=== PATIENT | female | born 1960 | race Caucasian/White ===

== ENCOUNTER 2018-07-12 11:43 | Emergency (ER) | payer SELFPAY ==
[~2018-07-12] VITALS: Ht 165.1 cm; Wt 108.9 kg
[2018-07-12] MEDS ORDERED: PREDNISONE 20 MG TAB PO NR (12:15)
[2018-07-12] MEDS ORDERED: KETOROLAC TROMETHAMINE 60 MG/2 ML VIAL IM NR (12:15)
[2018-07-12] MEDS ORDERED: DIAZEPAM 5 MG TAB PO PRN ×2 (12:15→14:00)
[2018-07-12] MEDS ORDERED: KETOROLAC TROMETHAMINE 60 MG/2 ML VIAL IM ONE (14:00)
--- NOTE | 2018-07-12 14:33 | Diagnostic Imaging Report ---
Examination: CT CERVICAL SPINE WITHOUT CONTRAST HISTORY:Fall and severe neck pain. COMPARISON:None. TECHNIQUE: Multidetector helical axial images were obtained without contrast from the foramen magnum to T1. Coronal and sagittal reformatted images were done. Bone and soft tissue windows were evaluated. Dose modulation, iterative reconstruction, and/or weight based adjustment of the mA/kV was utilized to reduce the radiation dose to as low as reasonably achievable. FINDINGS: Alignment:Normal alignment and lordosis. Vertebrae: Normal height and density. No acute fracture, infection or neoplasm. Disc space heights: Normal height. Caliber of spinal canal: Developmentally normal. Posterior fossa and craniocervical junction: Foramen magnum patent. No Chiari 1 malformation. Soft tissues: No abnormality. Degenerative changes: No disc bulge/ herniation or foraminal or canal stenosis. IMPRESSION: No abnormalities. Signed by: Dr. Keli Hogue M.D. on 07/12/2018 2:29 PM
--- NOTE | 2018-07-12 14:40 | Diagnostic Imaging Report ---
Examination: CT Thoracic and Lumbar Spines without Contrast History: Severe back pain after fall. Comparison studies: None Technique: Axial images through the thoracic and lumbar spines. Coronal and sagittal reconstructions obtained from the axial data. Dose modulation, iterative reconstruction, and/or weight based adjustment of the mA/kV was utilized to reduce the radiation dose to as low as reasonably achievable. Intravenous contrast: None Findings: The usual 5 non-rib bearing lumbar vertebral bodies are present. Alignment: Normal lordosis. No scoliosis. Soft tissues: No abnormalities. Paraspinal muscles: Unremarkable. Sacroiliac joints: No degenerative changes. Vertebrae: No fractures, infection or neoplasm. Degenerative changes: Thoracic spine: Mild left bridging osteophytes from T6 through T11. Lumbar spine: L1-L2 through L3-L4: No abnormalities. L4-L5: MIld diffuse disc bulge and mild bilateral facet arthropathy result in mild bilateral neural foraminal narrowing. No canal stenosis. L5-S1: MIld diffuse disc bulge and mild bilateral facet arthropathy result in mild bilateral neural foraminal narrowing. No canal stenosis. IMPRESSION: No acute thoracic or lumbar spine abnormality. Signed by: Dr. Keli Hogue M.D. on 07/12/2018 2:36 PM
== END 2018-07-12 16:33 | disposition home or self-care (01) ==
LOC: ER 11:43
DX: M54.5 Low back pain (principal); M54.6 Pain in thoracic spine; M54.2 Cervicalgia; S33.5XXA Sprain of ligaments of lumbar spine, initial encounter; W01.0XXA Fall on same level from slipping, tripping and stumbling without subsequent striking against object, initial encounter; Y92.008 Other place in unspecified non-institutional (private) residence as the place of occurrence of the external cause
CPT/HCPCS: 72125; 72128; 72131; 99284; J1885

== ENCOUNTER 2020-03-29 13:30 | Emergency (ER) | payer SELFPAY ==
[~2020-03-29] VITALS: Ht 165.1 cm; Wt 101.2 kg
--- OUTSIDE RECORDS SUMMARY | 2020-03-29 13:59 | XMS REPORT | Continuity of Care Document ---
Author Author [facility] t Organization [facility] Address [address] [place] [address] Phone Unavailable Care Team Providers Care Plant Puller Name Role Phone NO, PCP PCP Unavailable Levi DESHPANDE Attphylevi Unavailable Problems This patient has no known problems. Allergies, Adverse Reactions, Alerts Allergy Name Allergy Type Status Severity Reaction(s) Onset Date Inacti ve Date Treating Clinician Comments Source SULFA Allergy to Substance Active Moderate RASH 2018-07-12 00:00:00 [facility] TYLENOL W/CODIENE Propensity to adverse reactions Active Mode rate GASTRIC PROBLEMS 2018-07-12 00:00:00 [facility] SULFA (SULFONAMIDE ANTIBIOTICS) Allergy to substance Active [facility] TYLENOL-CODEINE Allergy to substance Active [facility] Social History Smoking Status Start Date Stop Date Source Never Smoker [facility] ractice Medications Ordered Medication Name Filled Medication Name Start Date Stop Da te Current Medication? Ordering Clinician Indication Dosage Frequency Signature (SIG) Comments Components Source Bromfed DM 2 mg-30 mg-10 mg/5 mL oral sy rup Take 10 mL every 4 hours by oral route. Bromfed DM 2 mg-30 mg-10 mg/5 mL oral sy rup Take 10 mL every 4 hours by oral route. No 10mL Q4H Bromfed DM 2 mg-30 mg-10 mg/5 mL oral syrup Take 10 mL every 4 hours by oral route. [facility] Medrol (Juan Ramon) 4 mg tablets in a dose pack as directed Maggie edrol (Juan Ramon) 4 mg tablets in a dose pack as directed No Medrol (Juan Ramon) 4 mg tablets in a dose pack as directed [facility] Z-Juan Ramon 250 mg tablet TAKE 2 TAB LETS (500 MG) BY ORAL ROUTE ONCE DAILY FOR 1 DAY THEN 1 TABLET (250 MG) BY ORAL ROUTE ONCE DAILY FOR 4 DAYS Zithromax Z-Juan Ramon 250 mg tablet TAKE 2 TABLETS (500 MG) BY ORAL ROUTE ONCE DAILY FOR 1 DAY THEN 1 TABLET (250 MG) BY ORAL ROUTE ONCE DAILY FOR 4 DAYS No Zithromax Z-Juan Ramon 250 mg tablet TAKE 2 TABLETS (500 MG) BY ORAL ROUTE ONCE DAILY FOR 1 DAY THEN 1 TABLET (250 MG) BY ORAL ROUTE ONCE DAILY FOR [address] [facility] Vital Signs Vital Name Observation Time Observation Value Comments Source BP Diastolic 2018-09-11 00:00:00 84 mm[Hg] [facility] Height 2018-09-11 00:00:00 64.6 [in_i] [facility] BMI (Body Mass Index) 2018-09-11 00:00:00 37.2 kg/m2 [facility] BP Systolic 2018-09-11 00:00:00 134 mm[Hg] [facility] Body Weight 2018-09-11 00:00:00 221 [lb_av] [facility] Procedures Procedure Date / Time Performed Performing Clinician [facility] Computed tomography of cervical spine without contrast 07-12 00:00:00 [facility] Computed tomography of thoracic spine without contrast 07-12 00:00:00 [facility] Computed tomography of lumbar spine without contrast 2018-07 00:00:00 [facility] Colonoscopy with Biopsy 1989-08-12 00:00:00 [facility] Caesarean Section 1988-08-12 00:00:[address] [facility] Gastrointestinal Surgery 1988-08-12 00:00:00 [place] Plan of Care Planned Activity Planned Date Details Comments Source Diagnostic Test Pending 2018-09-11 00:00:00 rapid flu (A+B) [code = rapid flu (A+B)] [facility] Instructions [facility] Encounters Start Date/Time End Date/Time Encounter Type Admission Type Att[facility] Care Department Encounter ID Source 2018-09-11 00:00:00 2018-09-11 00:00:00 Thad Santiago MD: [id number] [place] [address], Ph. [facility] - [facility] [id number] [facility] 2018-07-12 11:43:00 2018-07-12 16:33:00 Departed Emergency Room [address] [facility] [id number] [facility] Results Test Description Test Time Test Comments Results Result Comments Source CT LUMBAR SPINE WO 2018-07-12 14:30:00 [facility] [address] [address] Patient Name: BHARATI BAH MR #: [id number] : 1960 Age/Sex: 57/F Req #: [id number] Adm Physician: Ordered by: THEO DESHPANDE MD Report #: [id number] Location: ER Room/Bed: Procedure: [id number] CT/CT LUMBAR SPINE WO Exam Date: 07/12/18 Exam Time: 1320 REPORT STATUS: Signed Examination: CT Thoracic and Lumbar Spines without Contrast History: Severe back pain after fall. Comparison studies: None Technique: Axial images through the thoracic and lumbar spines. Coronal and sagittal reconstructions obtained from the axial data. Dose modulation, iterative reconstruction, and/or weight based adjustment of the mA/kV was utilized to reduce the radiation dose to as low as reasonably achievable. Intravenous contrast: None Findings: The usual 5 non- rib bearing lumbar vertebral bodies are present. Alignment: Normal lordosis. No scoliosis. Soft tissues: No abnormalities. Paraspinal muscles: Unremarkable. Sacroiliac joints: No degenerative changes. Vertebrae: No fractures, infection or neoplasm. Degenerative changes: Thoracic spine: Mild left bridging osteophytes from T6 through T11. Lumbar spine: L1-L2 through L3-L4: No abnormalities. L4-L5: MIld diffuse disc bulge and mild bilateral facet arthropathy result in mild bilateral neural foraminal narrowing. No canal stenosis. L5-S1: MIld diffuse disc bulge and mild bilateral facet arthropathy result in mild bilateral neural foraminal narrowing. No canal stenosis. IMPRESSION: No acute thoracic or lumbar spine abnormality. Signed by: Dr. Keli Hogue M.D. on 07/12/2018 2:36 PM Dictated By: KELI CONNELL MD 143 Transcribed By: GINGER on 07/12/18 1436 COPY TO: THEO DESHPANDE MD CT THORACIC SPINE WO 2018-07-12 14:30:00 [place] [address] Patient Name: BHARATI BAH MR #: [id number] : 1960 Age/Sex: 57/F Req #: [id number] [facility] Physician: Ordered by: THEO DESHPANDE MD Report #: [id number] Location: ER Room/Bed: Procedure: [id number] CT/CT THORACIC SPINE WO Exam Date: 07/12/18 Exam Time: 1320 REPORT STATUS: Signed Examination: CT Thoracic and Lumbar Spines without Contrast History: Severe back pain after fall. Comparison studies: None Technique: Axial images through the thoracic and lumbar spines. Coronal and sagittal reconstructions obtained from the axial data. Dose modulation, iterative reconstruction, and/or weight based adjustment of the mA/kV was utilized to reduce the radiation dose to as low as reasonably achievable. Intravenous contrast: None Findings: The usual 5 non- rib bearing lumbar vertebral bodies are present. Alignment: Normal lordosis. No scoliosis. Soft tissues: No abnormalities. Paraspinal muscles: Unremarkable. Sacroiliac joints: No degenerative changes. Vertebrae: No fractures, infection or neoplasm. Degenerative changes: Thoracic spine: Mild left bridging osteophytes from T6 through T11. Lumbar spine: L1-L2 through L3-L4: No abnormalities. L4-L5: MIld diffuse disc bulge and mild bilateral facet arthropathy result in mild bilateral neural foraminal narrowing. No canal stenosis. L5-S1: MIld diffuse disc bulge and mild bilateral facet arthropathy result in mild bilateral neural foraminal narrowing. No canal stenosis. IMPRESSION: No acute thoracic or lumbar spine abnormality. Signed by: Dr. Keli Hogue M.D. on 07/12/2018 2:36 PM Dictated By: KELI CONNELL MD 1436 Transcribed By: GINGER on 07/12/18 1436 COPY TO: THEO DESHPANDE MD CT CERVICAL SPINE WO 2018-07-12 14:26:00 [place] [address] Patient Name: BHARATI BAH MR #: [id number] : 1960 Age/Sex: 57/F Req #: [id number] Adm Physician: Ordered by: THEO DESHPANDE MD Report #: [id number] Location: ER Room/Bed: Procedure: [id number] CT/CT CERVICAL SPINE WO Exam Date: 07/12/18 Exam Time: 1320 REPORT STATUS: Signed Examination: CT CERVICAL SPINE WITHOUT CONTRAST HISTORY:Fall and severe neck pain. COMPARISON:None. TECHNIQUE: Multidetector helical axial images were obtained without contrast from the foramen magnum to T1. Coronal and sagittal reformatted images were done. Bone and soft tissue windows were evaluated. Dose modulation, iterative reconstruction, and/or weight based adjustment of the mA/kV was utilized to reduce the radiation dose to as low as reasonably achievable. FINDINGS: Alignment:Normal alignment and lordosis. Vertebrae: Normal height and density. No acute fracture, infection or neoplasm. Disc space heights: Normal height. Caliber of spinal canal: Developmentally normal. Posterior fossa and craniocervical junction: Foramen magnum patent. No Chiari 1 malformation. Soft tissues: No abnormality. Degenerative changes: No disc bulge/ herniation or foraminal or canal stenosis. IMPRESSION: No abnormalities. Signed by: Dr. Keli Hogue M.D. on 07/12/2018 2:29 PM Dictated By: KELI CONNELL MD 142 Transcribed By: GINGER on 07/12/18 142 COPY TO: THEO DESHPANDE MD
--- OUTSIDE RECORDS SUMMARY | 2020-03-29 13:59 | XMS REPORT | Encounter Summary ---
Author Organization Unknown Address [address] [place] [address] Phone [phone] Care Team Providers Care Medical Art Therapist Name Role Phone Twin Mcgill MD 3 [phone] Reason for Visit upper respiratory symptoms Instructions 1. Body mass index 30+ - obesity learning about healthy weight body mass index: care instructions 2. Influenza-like symptoms rapid flu (A+B) 3. Acute otitis media 4. Acute sinusitis Medrol (Juan Ramon) 4 mg tablets in a dose pa ck 5. Acute pharyngitis dexamethasone 4 mg/mL injection soluti on 6. Acute bronchitis ceftriaxone 1 gram solution for inject ion Zithromax Z-Juan Ramon 250 mg tablet Bromfed DM 2 mg-30 mg-10 mg/5 mL oral syrup Discussion Note: None recorded. Plan of Care Patient Instructions meds as directed,tylenol/advil prn Reminders Provider Appointments None recorded. Lab Rapid Flu (A+B) 09/11/2018 [facility] [place] Referral None recorded. Procedures None recorded. Surgeries None recorded. Imaging None recorded. Medications Name Start Date Bromfed DM 2 mg-30 mg-10 mg/5 mL oral sy rup Take 10 mL every 4 hours by oral route. Medrol (Juan Ramon) 4 mg tablets in a dose pack as directed Zithromax Z-Juan Ramon 250 mg tablet TAKE 2 TABLETS (500 MG) BY ORAL ROUTE ONCE DAILY FOR 1 DAY THEN 1 TABLET (250 MG) BY ORAL ROUTE ONCE DAILY FOR 4 DAYS Medications Administered None recorded. Vitals Height Weight BMI Blood Pressure 5 ft 4.6 in 221 lbs 37.2 kg/m2 134/84 mm[Hg] Lab Results None recorded. Allergies Code Code System Name Reaction Severity Status Onset Sulfa (Sulfonamide Antibiotics) Active Tylenol-codeine Active Problems No Known Problems Procedures Date Name Performed by 08/12/1989 Colonoscopy with Biopsy Information not available 08/12/1988 Caesarean Section Information not avai lable 08/12/1988 Gastrointestinal Surgery Information not available Vaccine List None recorded. Social History Smoking Status Never Smoker Past Encounters 09/11/2018 Body Mass Index 30+ - Obesity; Influenza-like Symptoms; Acute Otitis Media; Acute Sinusitis; Acute Pharyngitis; Acute Bronchitis Thad Santiago MD: [address] [place] [address], Ph. History of Present Illness Note:2 d h/o earache/ sore throat/body aches/sinus congestion/rhinorrhoea/none productive cough<div>no current flu vaccination</div> Review of Systems:ROS as noted in the HPI Review of Systems None recorded. Physical Exam Upper Respiratory Infection Exam Comprehensive Reported By: Patient Constitutional: General Appearance in no acu te distress Skin: Inspection and palpation: no rash, no lesions, no ulcer, good turgor, no jaundice Head: Sinuses right maxillary tend erness, left maxillary tenderness, right frontal tenderness, left frontal tenderness Eyes: Pupils EOM intact, PERRLA, c onjunctiva non-injected Ears: Right External auditory melissa l normal appearance, no obstruction, no erythema, no discharge. Left External auditory canal normal appearance, no obstruction, no erythema, no discharge. Right Tympanic membrane mobile with pneumatic otoscopy, landmarks clear, erythematous. Left Tympanic membrane: mobile with pneumatic otoscopy, landmarks clear, erythematous Nose: Nasal Skin: no lesion, no la cerations. Nasal Mucosa normal, pink and moist Oral Cavity/Mouth: Lips, teeth, gums normal lip s, normal gums. Oral Mucosa: normal, moist, no lesions. Palate: normal hard palate, normal soft palate. Tongue: normal tongue, no lesion, no edema. Tonsils: normal tonsils, no lesions. Posterior pharynx: erythema Lymph Nodes: Cervical no palpable lymph n ode enlargement, no submandibular adenopathy, no posterior cervical adenopathy, no anterior cervical adenopathy, no supraclavicular adenopathy Neck: Neck symmetrical, trachea mi dline Lungs: Respiratory effort unlabored . Auscultation breath sounds normal, no wheezing, no rales / crackles, no rhonchi Cardiovascular System: Auscultation regular rate an d rhythm, no murmur, no rubs, no gallops. Observation/Palpation of peripheral vascular system no varicosities, carotid pulse normal, no edema
--- NOTE | 2020-03-29 14:03 | Emergency Department Note ---
History of Present Illnes History of Present Illness Chief Complaint: Skin Rash or Abscess History of Present Illness This is a 59 year old female Chief Complaint Comment LEFT ANTERIOR ELBOW\/FOREARM REGION WITH LARGE RED RAISED HOT ABSCESS LIKE LUMP NOTED ONSET X ONE WK. NO FEVER NO PAIN. STATES SHE WEARS AN ELBOW BRACE AND THINKS THAT MAY HAVE CAUSE THIS. NON SMOKER. 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 Any updates have been documented here. Past Medical History Recent Fever: No Clinical Suspicion of Infectio: Yes New/Unexplained Change in Ment: No Past Medical History: None Past Surgical History: , Bariatric Surgery Other Surgery: ELBOW Social History Smoking Cessation: Unknown if ever smoked Counseling Performed: No Alcohol Use: None Any Illegal Drug Use: No Physically hurt or threatened: No Other Last Tetanus: OUT OF DATE Any Pre-Existing Lines (PICC,: No Review of Systems Review of Systems Constitutional: Reports no symptoms EENTM: Reports no symptoms Cardiovascular: Reports no symptoms Respiratory: Reports no symptoms Gastrointestinal: Reports no symptoms Genitourinary: Reports no symptoms Musculoskeletal: Reports no symptoms Integumentary: Reports as per HPI, Reports other (Abscess) Neurological: Reports no symptoms Psychological: Reports no symptoms Endocrine: Reports no symptoms Hematological/Lymphatic: Reports no symptoms Physical Exam Related Data Allergies: Coded Allergies: Sulfa (Sulfonamide Antibiotics) (Verified Allergy, Unknown, 03/29/20) acetaminophen (Verified Allergy, Unknown, 03/29/20) codeine (Verified Allergy, Unknown, 03/29/20) Triage Vital Signs Vital Signs Date Time Temp Pulse Resp B/P (MAP) Pulse Ox O2 Delivery O2 Flow Rate FiO2 03/29/20 13:35 98.3 74 16 160/91 100 Room Air Vital signs reviewed: Yes Physical Exam CONSTITUTIONAL Constitutional: Present well-developed, Present well-nourished HENT HENT: Present normocephalic, Present atraumatic, Present oropharynx clear/moist, Present nose normal HENT L/R: Present left ext ear normal, Present right ext ear normal EYES Eyes: Reports PERRL, Reports conjunctivae normal NECK Neck: Present ROM normal PULMONARY Pulmonary: Present effort normal, Present breath sounds normal CARDIOVASCULAR Cardiovascular: Present regular rhythm, Present heart sounds normal, Present capillary refill normal, Present normal rate GASTROINTESTINAL Abdominal: Present soft, Present nontender, Present bowel sounds normal GENITOURINARY Genitourinary: Present exam deferred SKIN Skin: Present warm, Present dry, Present lesion (Abscess lesion to L proximal forearm 1cm) MUSCULOSKELETAL Musculoskeletal: Present ROM normal NEUROLOGICAL Neurological: Present alert, Present oriented x 3, Present no gross motor or sensory deficits PSYCHOLOGICAL Psychological: Present mood/affect normal, Present judgement normal Procedures 12 Lead ECG Interpretation ECG Interpretation : Mine Engineering Superintendent: Interpreted by ED physician Date: Mar 29, 2020 Rhythm: atrial fibrillation Rate: normal QRS axis: normal ST segment flattening: aVF, V6 Clinical Impression: abnormal ECG Assessment & Plan Medical Decision Making MDM Exam concerning for an abscess. Before further evaluation and treatment patient left from the waiting room. Assessment & Plan Final Impression: (1) Abscess Depart Disposition: ELOPED Last Vital Signs Date Time Temp Pulse Resp B/P (MAP) Pulse Ox O2 Delivery O2 Flow Rate FiO2 03/29/20 13:35 98.3 74 16 160/91 100 Room Air LAWSON KAY MD Mar 29, 2020 14:03
== END 2020-03-29 13:45 | disposition left against medical advice (07) ==
LOC: ER 13:35
DX: S50.312A Abrasion of left elbow, initial encounter (principal)